=== PATIENT | male | born 1970 | race Caucasian/White ===

== ENCOUNTER 2017-06-19 05:51 | Day surgery (SDC) | payer BC, OTHER ==
[2017-06-18 11:31] LABS: ABSOLUTE EOSINOPHILS # (AUTO) 0.1 10^3/uL (0.0-0.6); ABSOLUTE MONOCYTES (AUTO) 0.5 10^3/uL (0.1-1.4); ABSOLUTE NEUT (AUTO) 4.9 10^3/uL (1.7-8.2); BASOPHILS % (AUTO) 0.6 % (0-2); EOSINOPHILS % (AUTO) 1.8 % (0-6); HEMATOCRIT 41.2 % (37.9-51.0); HEMOGLOBIN 14.2 g/dL (13.5-17.0); HGB HCT DIFFERENCE 1.4; LYMPHOCYTES % (AUTO) 25.8 % (13-45); MEAN CORPUSCULAR HGB CONC 34.3 g/dL (32.0-36.0); MEAN CORPUSCULAR VOLUME 79 fl (80-97); RED BLOOD COUNT 5.24 10^6/uL (4.35-5.55); RED CELL DISTRIBUTION WIDTH 14.8 % (11.5-14.0); SEGMENTED NEUTROPHILS % (AUTO) 64.8 % (42-78); WHITE BLOOD COUNT 7.6 10^3/uL (4.0-10.5)
[2017-06-18 11:59] LABS: ANION GAP 10 (5-19); BLOOD UREA NITROGEN 13 mg/dL (7-20); CARBON DIOXIDE 28 mmol/L (22-30); CHLORIDE 101 mmol/L (98-107); CREATININE RESULT 0.94 mg/dL (0.52-1.25); GLUCOSE 98 mg/dL (75-110); POTASSIUM 4.6 mmol/L (3.6-5.0); SODIUM 139.1 mmol/L (137-145)
--- NOTE | 2017-06-18 13:11 | EKG REPORT ---
SEVERITY:- ABNORMAL ECG - SINUS RHYTHM NONSPECIFIC T ABNORMALITIES, INFERIOR LEADS : Confirmed by: Jeremías Knapp MD 18-Jun-2017 13:11:30
--- NOTE | 2017-06-18 13:19 | RADIOLOGY REPORT (SQ) ---
EXAM DESCRIPTION: CHEST PA/LATERAL COMPLETED DATE/TIME: 06/18/2017 11:17 am REASON FOR STUDY: PRE OP COMPARISON: None. EXAM PARAMETERS: NUMBER OF VIEWS: two views TECHNIQUE: Digital Frontal and Lateral radiographic views of the chest acquired. RADIATION DOSE: NA LIMITATIONS: none FINDINGS: LUNGS AND PLEURA: No opacities, masses or pneumothorax. No pleural effusion. MEDIASTINUM AND HILAR STRUCTURES: No masses or contour abnormalities. HEART AND VASCULAR STRUCTURES: Heart normal size. No evidence for failure. BONES: No acute findings. HARDWARE: None in the chest. OTHER: No other significant finding. IMPRESSION: NO SIGNIFICANT RADIOGRAPHIC FINDING IN THE CHEST. TECHNICAL DOCUMENTATION: JOB ID: [id number] [employer]- All Rights Reserved
[~2017-06-19 05:51] MED LIST: CEFAZOLIN 2 GM/D5W RTU 2 GM/50 ML RTUPB IV PRN; LACTATED RINGERS 1000 ML IV PRN; LIDOCAINE 0.5% INJ-PF (5 MG/ML) 50 ML SDV SUBCUT PRN
[2017-06-19 06:12] LABS: APPEARANCE,URINE CLEAR; BILIRUBIN,URINE NEGATIVE (NEGATIVE); GLUCOSE, URINE NEGATIVE (NEGATIVE); KETONES,URINE NEGATIVE (NEGATIVE); LEUKOCYTE ESTERASE,URINE NEGATIVE (NEGATIVE); NITRITE,URINE NEGATIVE (NEGATIVE); PROTEIN,URINE NEGATIVE (NEGATIVE); URINE SPECIFIC GRAVITY 1.025; UROBILINOGEN,URINE NEGATIVE mg/dL (<2.0)
[2017-06-19] MEDS ORDERED: FENTANYL CITRATE INJ/PF 250 MCG/5 ML AMPULE ONE (07:41)
[2017-06-19] MEDS ORDERED: MIDAZOLAM 2 MG/2 ML INJ ONE (07:41)
[2017-06-19] MEDS ORDERED: IBUPROFEN INJ 800 MG/8 ML VIAL IV ONE (07:42)
[2017-06-19] MEDS ORDERED: ACETAMINOPHEN 100 ML IV ONE (07:42)
[2017-06-19] MEDS ORDERED: PROPOFOL INJ 200 MG/20 ML VIAL IV ONE (07:42)
[2017-06-19] MEDS ORDERED: MORPHINE SULFATE 10 MG/ML INJ ONE (07:42)
[2017-06-19] MEDS ORDERED: EPHEDRINE SULFATE INJ 50 MG/1 ML AMPULE ONE (07:42)
[2017-06-19] MEDS ORDERED: DEXMEDETOMIDINE INJ 80 MCG/20 ML VIAL IV ONE (07:42)
[2017-06-19] MEDS ORDERED: BUPIVACAINE HCL 0.5 % INJ/PF 30 ML SDV ONE (07:49)
[2017-06-19] MEDS ORDERED: FENTANYL CITRATE INJ/PF 100 MCG/2 ML AMPUL IV PRN ×3 (08:52)
[2017-06-19] MEDS ORDERED: MEPERIDINE HCL/PF INJ 25 MG/1 ML DISP.SYRIN IV PRN (08:52)
[2017-06-19] MEDS ORDERED: ONDANSETRON HCL INJ/PF 4 MG/2 ML SDV IV PRN ×2 (08:52→10:25)
[2017-06-19] MEDS ORDERED: PROMETHAZINE HCL INJ 25 MG/1 ML VIAL IV PRN ×2 (08:52)
[2017-06-19] MEDS ORDERED: DIPHENHYDRAMINE HCL 50 MG/ML VIAL IV PRN (08:52)
[2017-06-19] MEDS ORDERED: MORPHINE SULFATE 10 MG/ML INJ IV PRN ×2 (08:52→10:25)
[2017-06-19] MEDS ORDERED: OXYCODONE-ACETAMINOPHEN 5-325 MG TABLET PO PRN (10:25)
--- NOTE | 2017-06-19 10:25 | PDOC DISCHARGE SUMMARY ---
Discharge Summary (SDC) - Discharge Final Diagnosis: Right Intra-articular Distal Radius Fracture > 3 Fragments Date of Surgery: 06/19/17 Discharge Date: 06/19/17 Condition: Good Treatment or Instructions: Schedule Follow Up w/ Dr. Yash Queen @ [facility] for Surgery to be seen in 10-14 days or as scheduled [place]: [place]: [place]: Ice and elevate Keep splint clean/dry/intact. If your fingers become numb please unwrap the Kendrick wrap but leave the splint in place, if the sensation does not return within 30 minutes please return to the emergency department. May begin finger range of motion attempting to make full fist. Please use ibuprofen (Motrin or Advil) 600-800 mg every 8 hours as needed for pain or fever. You may also use acetaminophen (Tylenol) 1000 mg every 4-6 hours as needed for pain or fever. Please be aware that many medications contain acetaminophen, do not exceed a total of 1000 mg of acetaminophen every 6 hours. If ibuprofen and acetaminophen are not sufficient for your pain you may take the Percocet. Please be aware that the Percocet does contain Tylenol. Stool softener of choice when on pain medication. Prescriptions: Oxycodone HCl/Acetaminophen [Percocet 5-325 mg Tablet] 1 - 2 tab PO ASDIR PRN # 50 tablet PRN Reason: Referrals: GREG BUENO PA [Primary Care Provider] - Discharge Diet: As Tolerated Respiratory Treatments at Home: Deep Breathing/Coughing Discharge Activity: No Lifting Over 10 Pounds, No Lifting/Push/Pulling Report the Following to Your Physician Immediately: Fever over 101 Degrees, Unusual Bleeding, Redness, Swelling, Warmth, Increased Soreness
--- NOTE | 2017-06-19 10:45 | Operative Report ---
Operative Report DATE OF SURGERY: 06/19/17 PREOPERATIVE DIAGNOSIS: Right Intra-articular Distal Radius Fracture > 3 Fragments POSTOPERATIVE DIAGNOSIS: Right Intra-articular Distal Radius Fracture > 3 Fragments OPERATION: ORIF Right Intra-articular Distal Radius Fracture > 3 Fragments SURGEON: NAPOLEON ALFONSO ANESTHESIA: GA COMPLICATIONS: None ESTIMATED BLOOD LOSS: Minimal PROCEDURE: Procedure in detail: 47-year-old male who sustained a fall onto his outstretched right upper extremity. Patient was seen at the emergency room where x-rays demonstrated comminuted intra-articular distal radius fracture. Upon follow-up with me I ordered a CT scan further evaluating intra-articular fragments CT demonstrate diastases and notable intra-articular step-off. At that point we discussed treatment options including operative versus nonoperative intervention. Risks and benefits were explained to the patient who verbalized understanding and consented for the procedure. Procedure In Detail: Patient was seen and evaluated in the preoperative holding area. The RIGHT upper extremity was initialized and marked. Patient received 2g of Ancef IV for bacterial prophylaxis. Patient was taken back to the operative room where transferred to the operative table and placed under general anesthesia. Once they were adequately anesthetized a nonsterile tourniquet was placed on the upper extremity. A surgical team debriefing was performed ensuring all instrumentation was available, the surgical procedure was discussed with possible concerns reviewed. The upper extremity was prepped with chlorhexidine and alcohol and draped in a sterile fashion. A timeout was done identifying correct patient, procedure and extremity everyone in attendance agree with this and verbalized no concerns. The extremity was exsanguinated the tourniquet was inflated to 250 mmHg. Longitudinal skin incision was made dorsally just ulnar to Urban's tubercle. Blunt dissection was performed. The superficial radial nerve was retracted with a skin flap in a radial direction. The third dorsal compartment was identified and opened retracted the EPL in a radial direction. Small venous vasculature was coagulated bipolar cautery. I then elevated the second and third dorsal compartments to expose the dorsal aspect of the distal radius. A transverse capsulotomy was then made to visualize the radial carpal joint. A small bone fragments were removed from the articular surface including a 1 mm portion of articular surface. The large dorsal fragment was then carefully elevated under direct visualization and under direct visualization acceptable reduction with less than 1 mm step-off was achieved thus the dorsal ulnar fragment and volar ulnar fragment were fixated with K wires. A second K wire was then placed from the radial styloid to the dorsal ulnar fragment. Under direct visualization there is acceptable reduction of the articular surface with less than 1 mm step-off there was a small area of chondral defect at the trifurcation of 3 fragments. I then placed a large Acumed dorsal plate which was secured into position and placed directly on the the extensor tendons including the APL/EPB were elevated proximally. C-arm fluoroscopy was obtained which demonstrated yazdanism of radial height, inclination and volar tilt without significant articular diastases or step-off. Unfortunately given the patient's body habitus and size the longest and widest dorsal plate was chosen. K wires were placed into the plate and C-arm was used to confirm appropriate proximal and distal placement. The plate was first secured proximally with bicortical fixation. This screw was placed in the oblong hole and just proximal to the sagittal split that extended I then turned my attention to fixation distally. An additional bicortical screw was placed to further bring the plate down to bone to avoid postoperative extensor tendon irritation. I then completed fixation with the remaining screws utilizing locking screws and drilled to but not through the far cortex. The previous cortex screw was then replaced with the appropriate size locking screw. Through my transverse capsulotomy direct visualization of the articular surface demonstrated adequate fixation of my articular fragments with the various screws from the dorsal plate. There is no evidence of intra- articular screw penetration at the radiocarpal or distal radial ulnar joint. The previous K wires were then removed. I then completed fixation with an additional bicortical screw in the most proximal hole. Unfortunately I was unable to place a third cortex screw secondary to patient's sagittal split. C- arm fluoroscopy was obtained which demonstrated yazdanism of radial height, inclination and volar tilt. No evidence of significant intra-articular diastases or step-off. Range of motion demonstrated no evidence of crepitus at the DRUJ or radiocarpal joint. Scapholunate ligament remained intact under direct visualization. The transverse capsulotomy was then closed with interrupted 3-0 Vicryl suture. The posterior interosseous nerve was identified at the floor of the fourth dorsal compartment and excised. I then fixated the second to third dorsal compartment with interrupted 3-0 Monocryl suture. A small flap was constructed to place between the ECRL/ECRB tendons and the plate. EPL was left transposed in a radial direction. The tourniquet was then deflated. A peripheral vasculature was coagulated. There was some bone bleeding that the tourniquet was reinflated. Subcutaneous tissues were closed with interrupted 3-0 Monocryl suture. Skin was closed in running subcuticular 4-0 Monocryl reinforced with Dermabond and Steri-Strips. 20 cc of 0.5% Marcaine without epinephrine was injected for postoperative pain control. Patient was placed in a volar resting splint in the neutral position. Sponge counts, instrument counts, needle counts counts were correct. Patient was then awoken from anesthesia. Transferred from the operating room table to the operating room stretcher. There was no intraoperative complications patient tolerated procedure well stable to PACU. Postoperative plan: Patient will follow-up in the office in 2 weeks at which point we will obtain radiographs. Patient will be placed in a short arm cast versu Long Exos splint.
--- NOTE | 2017-06-19 12:04 | RADIOLOGY REPORT (SQ) ---
EXAM DESCRIPTION: NO CHG FLUORO; WRIST RIGHT 2 VIEWS COMPLETED DATE/TIME: 06/19/2017 10:33 am REASON FOR STUDY: ORIF RT DISTAL RADIUS COMPARISON: None. FLUOROSCOPY TIME: 1 minutes 36 seconds 11 Images saved to PACS RADIATION DOSE: 2.2 mGy LIMITATIONS: None. PROCEDURE: ORIF right distal radius PE FINDINGS: Images document the open reduction internal fixation of the right distal radial fracture b y means of a dorsal plate secured by multiple screws. IMPRESSION: ORIF right distal radial fracture. COMMENT: PQRS 6045F: Fluoroscopy time of the procedure is documented in the report. TECHNICAL DOCUMENTATION: JOB ID: [id number] [employer]- All Rights Reserved
--- NOTE | 2017-06-19 12:04 | RADIOLOGY REPORT (SQ) ---
EXAM DESCRIPTION: NO CHG FLUORO; WRIST RIGHT 2 VIEWS COMPLETED DATE/TIME: 06/19/2017 10:33 am REASON FOR STUDY: ORIF RT DISTAL RADIUS COMPARISON: None. FLUOROSCOPY TIME: 1 minutes 36 seconds 11 Images saved to PACS RADIATION DOSE: 2.2 mGy LIMITATIONS: None. PROCEDURE: ORIF right distal radius PE FINDINGS: Images document the open reduction internal fixation of the right distal radial fracture b y means of a dorsal plate secured by multiple screws. IMPRESSION: ORIF right distal radial fracture. COMMENT: PQRS 6045F: Fluoroscopy time of the procedure is documented in the report. TECHNICAL DOCUMENTATION: JOB ID: [id number] [employer]- All Rights Reserved
[2017-06-19] MEDS ORDERED: SUCCINYLCHOLINE CHLORIDE INJ 200 MG/10 ML VIAL ONE (12:26)
[2017-06-19] MEDS ORDERED: DEXAMETHASONE SOD PHOSPHATE INJ 4 MG/1 ML VIAL ONE (12:26)
[2017-06-19] MEDS ORDERED: LIDOCAINE 2% INJ-PF (20 MG/ML) 10 ML AMPUL ONE (12:26)
[2017-06-19] MEDS ORDERED: GLYCOPYRROLATE INJ 0.4 MG/2 ML VIAL ONE (12:26)
[2017-06-19] MEDS ORDERED: ONDANSETRON HCL INJ/PF 4 MG/2 ML SDV ONE (12:26)
[2017-06-19] MEDS ORDERED: METOCLOPRAMIDE HCL INJ/PF 10 MG/2 ML SDV ONE (12:26)
[2017-06-19 12:38] VITALS: BP 122/74
== END 2017-06-19 12:10 | disposition home or self-care (01) ==
LOC: OROUT 05:51
PROVIDERS: ATTEND Orthopaedic Surgery
PROC: 0PSH04Z Reposition Right Radius with Internal Fixation Device, Open Approach (ICD-10-PCS; principal; 2017-06-19 08:00)
DX: S52.571A Other intraarticular fracture of lower end of right radius, initial encounter for closed fracture (principal); W19.XXXA Unspecified fall, initial encounter; E66.01 Morbid (severe) obesity due to excess calories; I10 Essential (primary) hypertension; K21.9 Gastro-esophageal reflux disease without esophagitis; G47.30 Sleep apnea, unspecified; Y93.64 Activity, baseball; Z68.41 Body mass index [BMI] 40.0-44.9, adult; Z79.899 Other long term (current) drug therapy
CPT/HCPCS: 93005; 36415; 85025; 80048; 81001; 71020; 73100; 93010; 25609; C1713; J2250; J1100; J3490 ×3; J3010; J2765; J0330; J2405; J2704; J0690; J0131; J1741; 01830; J2270